=== PATIENT | male | born 1965 | race Caucasian/White ===

== ENCOUNTER 2019-02-23 18:24 | Emergency (ER) | payer SELFPAY ==
--- NOTE | 2019-02-23 18:36 | EDM.PDOC ---
ED HPI GENERAL MEDICAL PROBLEM - General Chief Complaint: Upper Extremity Injury/Pain Stated Complaint: INJURY TO R HAND Time Seen by Provider: 02/23/19 18:30 Source of Information: Reports: Patient History Limitations: Reports: No Limitations - History of Present Illness INITIAL COMMENTS - FREE TEXT/NARRATIVE: Patient comes into the emergency department with complaints of a right hand injury. 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 He states he noted pain immediately and is progressively getting worse. He's got limited range of motion. He denies any CMS concerns. He denies taking any medications or placing ice on the area prior to arrival. Patient denies any other concerns of complaints. Onset: Sudden Quality: Reports: Throbbing Severity: Severe Improves with: Reports: Immobilization Worsens with: Reports: Movement Context: Reports: Trauma Associated Symptoms: Reports: No Other Symptoms Right Hand Pain Score (Numeric/FACES): 10 - Related Data Allergies Allergy/AdvReac Type Severity Reaction Status Date / Time amoxicillin [From Augmentin] Allergy Bronchospas Verified 02/23/19 18:40 ms clavulanic acid Allergy Bronchospas Verified 02/23/19 18:40 [From Augmentin] ms ketorolac [From Toradol] Allergy Bronchospas Verified 02/23/19 18:40 ms morphine Allergy Bronchospas Verified 02/23/19 18:40 ms tramadol Allergy Bronchospas Verified 02/23/19 18:40 ms Home Meds: Home Meds . [No Known Home Meds] 02/23/19 [History] ED ROS GENERAL - Review of Systems Review Of Systems: ROS reveals no pertinent complaints other than HPI. Constitutional: Reports: No Symptoms HEENT: Reports: No Symptoms Respiratory: Reports: No Symptoms Cardiovascular: Reports: No Symptoms GI/Abdominal: Reports: No Symptoms : Reports: No Symptoms Skin: Reports: No Symptoms Neurological: Reports: No Symptoms Psychiatric: Reports: No Symptoms Hematologic/Lymphatic: Reports: No Symptoms ED EXAM, GENERAL - Physical Exam Exam: See Below Exam Limited By: No Limitations General Appearance: Alert, WD/WN, No Apparent Distress Eye Exam: Bilateral Eye: Other (pinpoint pupils ) Nose: Normal Inspection, Normal Mucosa Head: Atraumatic, Normocephalic Neck: Normal Inspection, Supple, Non-Tender Respiratory/Chest: No Respiratory Distress, No Accessory Muscle Use Cardiovascular: Normal Peripheral Pulses, Regular Rate, Rhythm, No Edema Peripheral Pulses: 3+: Radial (L), Radial (R) GI/Abdominal: Normal Bowel Sounds, Soft, Non-Tender, No Distention Extremities: Normal Inspection, Normal Range of Motion, Non-Tender, No Pedal Edema, Other (mild swelling noted. right hand. Limited ROM due to pain . No redness, warmth, or ecchymosis noted. CMS intact ) Neurological: Alert, Oriented, Normal Gait Psychiatric: Normal Affect, Flat Affect, Other (pt falling asleep during assessment, very short on answers not willing to answer questions fully. ) Skin Exam: Warm, Dry, Intact, Normal Color Course - Vital Signs Last Recorded V/S: Last Vital Signs Temp 36.8 C 02/23/19 18:30 Pulse 90 02/23/19 18:30 Resp 16 02/23/19 18:30 BP 114/71 02/23/19 18:30 Pulse Ox 97 02/23/19 18:30 Departure - Departure Time of Disposition: 19:20 Disposition: Home, Self-Care 01 Condition: Good Clinical Impression: Contusion of right hand Qualifiers: Encounter type: initial encounter Qualified Code(s): S60.221A - Contusion of right hand, initial encounter - Discharge Information *PRESCRIPTION DRUG MONITORING PROGRAM REVIEWED*: Not Applicable *COPY OF PRESCRIPTION DRUG MONITORING REPORT IN PATIENT ELOISA: Not Applicable Instructions: Hand Contusion Forms: ED Department Discharge Additional Instructions: 1. rest 2. increase your water intake 3. Use the hand brace for comfort 4. Can take Tylenol as needed for pain and discomfort 5. Apply ice to the lidya 3-4 times a day for 20 mins at a time 6. Follow up with your PCP as needed 7. Call with questions or concerns. - Problem List Review Problem List Initiated/Reviewed/Updated: Yes - Assessment/Plan Assessment:: 1. right hand pain/ hand contusion Plan: 1. X-ray of right hand. No Acute finding noted 2. Right hand splint applied, ice offered however patient refused stating it does not work and hurts more 3. Pt offered non-narcotic medications however he stated "that shit won't work, I need something stronger". 4. Did educated we will apply a hand splint and offer OTC medication however, we would not be offering any narcotics at this time. Did offer to do labs and urine to evaluate why he is sleepy and he is not willing to have any labs or urine completed. Did discuss with him falling asleep during assessment and his willingness to answers questions is a red flag. 5. Pt is not happy that provider is not willing to give anything "stronger" than what I was offering. Discussed with him the mechanisms of the medications and the appropriateness of when to use medications. Also educated the use of Ice , rest, compress and elevate. He states "that shit don't work". 6. Education regarding activity, diet, splint use, ICE, OTC medications and follow up care provided. 7. All questions and concerns addressed prior to discharge.
--- NOTE | 2019-02-23 19:13 | CR ---
[id number] RAD/RAD Hand Right 3V EXAM: RIGHT HAND 3 VIEWS INDICATION: FALL ON RIGHT HAND. COMPARISON: None. DISCUSSION: No fracture, dislocation or other osseous abnormality. IMPRESSION: 1. Negative exam. Jalil Jones MD 02/23/19 [id number] Thank you for allowing us to participate in the care of your patient.
== END 2019-02-23 19:32 | disposition home or self-care (01) ==
LOC: VM.ED 18:24
DX: S60.221A Contusion of right hand, initial encounter (principal); Z88.5 Allergy status to narcotic agent; Z88.6 Allergy status to analgesic agent; Z88.1 Allergy status to other antibiotic agents; W19.XXXA Unspecified fall, initial encounter; Y99.0 Civilian activity done for income or pay
CPT/HCPCS: 73130-RT; 99283-25; 99283-GF